=== PATIENT | male | born 1990 | race African-American/Black ===

== ENCOUNTER 2021-08-21 02:01 | Emergency (ER) | payer SELFPAY ==
[~2021-08-21] VITALS: Ht 172.7 cm; Wt 81.8 kg
[2021-08-21 02:11] VITALS: BP 104/61
--- NOTE | 2021-08-21 02:21 | NUR ---
PT IS INTOXICATED AND CURRENTLY POOR HISTORIAN.
[2021-08-21 02:43] LABS: BASOPHILS % (AUTO) 0.4 % (0-1); EOSINOPHILS # (AUTO) 0.1 X10'3 (0-0.9); EOSINOPHILS % (AUTO) 2.1 % (0-6); HEMATOCRIT 41.6 % (42.0-52.0); LYMPHOCYTES # (AUTO) 2.6 X10'3 (1.1-4.8); LYMPHOCYTES % (AUTO) 38.2 % (21-51); MEAN CORPUSCULAR HEMOGLOBIN 30.4 PG (27.0-31.0); MEAN CORPUSCULAR HGB CONC 33.7 g/dL (33.0-36.5); MEAN CORPUSCULAR VOLUME 90.1 FL (78-98); MEAN PLATELET VOLUME 8.6 FL (7.4-10.4); MONOCYTES # (AUTO) 0.3 X10'3 (0-0.9); MONOCYTES % (AUTO) 4.2 % (2-12); NEUTROPHILS # (AUTO) 3.7 X10'3 (1.8-7.7); NEUTROPHILS % (AUTO) 55.1 % (42-75); PLATELET COUNT 179 X10'3 (140-440); RED BLOOD COUNT 4.62 X10'6 (4.70-6.10); RED CELL DISTRIBUTION WIDTH 13.5 % (11.5-14.5); WHITE BLOOD COUNT 6.7 X10'3 (4.5-11.0)
[2021-08-21 02:55] LABS: ALANINE AMINOTRANSFERASE 19 U/L (12-78); ALBUMIN 4.5 G/DL (3.4-5.0); ALBUMIN/GLOBULIN RATIO 1.2 (1.1-1.5); ALKALINE PHOSPHATASE 52 IU/L (46-116); ANION GAP 11 (8-16); ASPARTATE AMINO TRANSFERASE 21 U/L (10-37); BILIRUBIN,TOTAL 0.3 MG/DL (0.1-1.0); BLOOD UREA NITROGEN 12 MG/DL (7-18); BUN/CREATININE RATIO 10.6 (5.4-32.0); CALCIUM 9.5 MG/DL (8.5-10.1); CHLORIDE 106 MMOL/L (99-107); CREATININE 1.13 MG/DL (0.60-1.10); GLUCOSE 103 MG/DL (70-104); POTASSIUM 3.4 MMOL/L (3.5-5.1); SODIUM 145 MMOL/L (135-145); TOTAL CARBON DIOXIDE 27.6 MMOL/L (24-32); TOTAL PROTEIN 8.3 G/DL (6.4-8.2); eGFR 77 ML/MIN
== END 2021-08-21 03:22 ==
LOC: ER 02:02
DX: F10.129 Alcohol abuse with intoxication, unspecified (principal); Y90.8 Blood alcohol level of 240 mg/100 ml or more
CPT/HCPCS: 36415; 70450; 80053; 80320; 85025; 99284

== ENCOUNTER 2024-07-20 12:56 | Emergency (ER) | payer SELFPAY ==
[~2024-07-20] VITALS: Ht 172.7 cm; Wt 58.3 kg
[2024-07-20 13:00] VITALS: BP 135/95; PULSE 85; O2SAT 97
[2024-07-20] MEDS ORDERED: AMOX875T10 PO (14:09)
--- NOTE | 2024-07-20 14:10 | Physician Documentation ---
HPI ~ General Chief Complaint: Tooth Problem Stated Complaint: TOOTH PAIN Time Seen by MD: 13:59 History of Present Illness HPI Comment The patient is seen today with complaints of dental pain of right upper molar x2 days. Patient states he did start amoxicillin yesterday and has taken two tablets total. Patient denies any fevers or chills. He has no other concern or complaint at this time. Medication Reconciliation Allergies: Coded Allergies: Penicillins (Verified Allergy, Unknown, 07/20/24) Scheduled Amoxicillin Trihydrate (Amoxicillin), 1 TAB PO Q12H Past Medical History Alcohol Use: Heavy Drug Use: none Review of Systems Constitutional: Denies: chills, fever, weakness Eyes: Denies: pain, blurred vision ENT: Denies: ear pain, nose pain, throat pain, mouth pain Respiratory: Denies: cough, shortness of breath Cardiovascular: Denies: chest pain, palpitations Gastrointestinal: Denies: abdominal pain, nausea, vomiting Genitourinary: Denies: burning, dysuria Male Genitalia: Denies: penile discharge, testicular pain Neurological: Denies: headache, dizziness Musculoskeletal: Denies: pain, swelling Integumentary: Denies: rash, lesions Allergic/Immunologic: Denies: hives, itching Hematologic/Lymphatic: Denies: no symptoms reported Psychiatric: Denies: depression, anxiety Physical Exam Vital Signs: Temperature: 98.2, Source: Temporal, Heart Rate: 85, Respiratory Rate: 15, BP: 135/95, Pulse Oximetry: 97, Weight: 58.300 Physical Exam General: Awake and Alert, no acute distress. HEENT: Patient on exam does have swelling of his right side of his face and around the right upper molars Conjunctiva pink, Sclera clear, Mucus Membranes moist. Neck: Supple without masses and tenderness. Resp: Unlabored. Lungs clear to auscultation bilaterally. Heart: Regular Rate and rhythm, normal S1 and S2 without murmur, rub or gallop. Extremities: No cyanosis,clubbing or edema. Skin: Warm and Dry. Progress Results/Orders Results/Orders Completed Orders - TAMI SARGENT Ketorolac Trometh 30mg/Ml Vial (Toradol (07/20/24 14:06) Vital Signs 07/20/24 13:00 Temp 98.2 Pulse 85 Resp 15 B/P (MAP) 135/95 Pulse Ox 97 Medical Decision Making Findings The patient is seen today with complaints of dental pain of right upper molar x2 days. Patient states he did start amoxicillin yesterday and has taken two tablets total. Patient denies any fevers or chills. He has no other concern or complaint at this time. Patient was given a injection of Toradol 30 mg IM in the ED today. Prescription of amoxicillin 875 mg one tab twice a day by mouth sent to patient pharmacy. Patient will return to ED with any worsening, concerning or changing symptoms. Follow up with dentist as soon as possible. Departure Disposition: HOME / SELF CARE / HOMELESS Impression: Primary Impression: Dental abscess Condition: Stable Discharge Instructions: Dental Abscess Additional Instructions: Patient was given a injection of Toradol 30 mg IM in the ED today. Prescription of amoxicillin 875 mg one tab twice a day by mouth sent to patient pharmacy. Patient will return to ED with any worsening, concerning or changing symptoms. Follow up with dentist as soon as possible. Referrals: NO PRIMARY CARE PROVIDER (PCP) Prescriptions Amoxicillin Trihydrate (Amoxicillin) 875 Mg Tablet 1 TAB PO Q12H for 10 Days, #20 TAB Prov: TAMI SARGENT 07/20/24 Signature Scribe Signature: No scribe Attestation: No scribe TAMI SARGENT July 20, 2024 14:10
[2024-07-20 15:24] VITALS: RESP 16
[2024-07-20] MEDS: ketorolac trometh 30MG/ML vial 30 MG/ML VIAL IM STA (15:24)
[2024-07-20 15:32] VITALS: TEMP 98.2
== END 2024-07-20 15:35 | disposition home or self-care (01) ==
LOC: ER 12:57
DX: K04.7 Periapical abscess without sinus (principal); F10.90 Alcohol use, unspecified, uncomplicated; Z88.0 Allergy status to penicillin; Y90.9 Presence of alcohol in blood, level not specified
CPT/HCPCS: 96372; 99283; J1885